=== PATIENT | male | born 1945 | race Caucasian/White ===

== ENCOUNTER 2016-12-28 19:57 | Observation (INO) | payer OTHER, BC ==
[~2016-12-28] VITALS: Ht 182.9 cm; Wt 78.1 kg
[2016-12-28 20:28] LABS: HEMATOCRIT 44.3 % (38.0-50.0); MCH 25.6 PG (29.0-34.0); MCHC 32.1 G/DL (30.0-36.0); MCV 79.8 FL (86-99); MEAN PLAT.VOLUME 9.8 uM^3 (9.0-12.4); PLATELET COUNT 146 K/uL (156-360); RBC DIS.WIDTH-CV 13.6 % (11.8-14.6); RBC DIS.WIDTH-SD 39.5 % (39-53); RED BLOOD COUNT 5.55 M/uL (4.00-5.50); WHITE BLOOD COUNT 7.4 K/uL (4.1-10.2)
[2016-12-28 20:36] LABS: ADD MIUA? YES; BILIRUBIN NEGATIVE; BLOOD NEGATIVE; COLOR AMBER ((YELLOW)); GLUCOSE (STRIP) NEGATIVE; KETONES 5; LEUKOCYTES NEGATIVE; NITRITE NEGATIVE; PROTEIN (STRIP) 100; SPECIFIC GRAVITY 1.039 (1.000-1.030); UROBILINOGEN 0.2 MG/DL (0.2-1.0)
[2016-12-28 20:48] LABS: BACTERIA RARE /HPF; CALCIUM OXALATE CRYSTALS 3+ /HPF; EPITHELIAL CELLS RARE /HPF; MUCUS 3+ /LPF; RED BLOOD CELLS 30-40 /HPF (0-5); UCUL ADDED? NO; UNCLASSIFIED CRYSTALS 4+ /HPF
[2016-12-28 20:50] LABS: CHLORIDE 106 mEq/L (99-109); POTASSIUM 3.9 mEq/L (3.7-5.4); SODIUM 140 mEq/L (136-147)
[2016-12-28 20:52] LABS: GLUCOSE 152 mg/dL (70-99)
[2016-12-28 20:53] LABS: ANION GAP 11 MEQ/L (2-14)
[2016-12-28 20:54] LABS: TOTAL BILIRUBIN 0.7 mg/dL (0.0-1.0)
[2016-12-28 20:56] LABS: ALKALINE PHOSPHATASE 130 IU/L (3-129); GFR ESTIMATE (CALCULATED) 40 mL/min/
[2016-12-28 20:57] LABS: UREA NITROGEN (BUN) 22 mg/dL (9-23)
[2016-12-29] MEDS ORDERED: NITROSTAT0.4 MG SL (00:14)
[2016-12-29] MEDS ORDERED: PRAVASTATIN SOD20 MG PO (00:14)
[2016-12-29] MEDS ORDERED: PROSTATE SR SO1 EACH PO (00:15)
[2016-12-29] MEDS ORDERED: LO-DOSE ASPIRIN81 M2 PO (00:15)
[2016-12-29] MEDS ORDERED: OSTEO BI-FLEX1 EAC2 PO (00:15)
[2016-12-29] MEDS ORDERED: CARVEDILOL12.5 MG PO (00:15)
[2016-12-29] MEDS ORDERED: ASCORBIC ACID500 M3 PO (00:16)
[2016-12-29] MEDS ORDERED: OMEGA-31000 M1 PO (00:16)
[2016-12-29] MEDS ORDERED: PRESERVISION T1 EACH PO (00:16)
[2016-12-29] MEDS ORDERED: PREVACID 24HR15 MG PO (00:16)
[2016-12-29 02:34] VITALS: BP 112/72
[2016-12-29 05:52] VITALS: BP 118/80
[2016-12-29 07:01] LABS: Estimated Average Glucose 126 mg/dL (70-123)
[2016-12-29 08:03] LABS: ANISOCYTOSIS 1+; MICROCYTOSIS 2+; PLAT.SUFFICIENCY DECREASED; POIKILOCYTOSIS 1+
[2016-12-29 12:14] VITALS: BP 123/72
[2016-12-29 15:54] VITALS: BP 130/70
[2016-12-29] MEDS ORDERED: NORCO 5/3251 TABLET PO (17:09)
[2016-12-29] MEDS ORDERED: CIPRO500 MG PO (17:09)
[2016-12-30 00:17] LABS: ABS NEUTROPHIL COUNT 4.7; EOSINOPHIL ABS CT 0.1
== END 2016-12-29 18:08 | disposition home or self-care (01) ==
LOC: EME 19:57 → EDOF 12-29 00:15 → 2EASTP 12-29 00:15 → EDOF 12-29 00:15 → 2EASTP 12-29 01:36
PROC: 0DTJ4ZZ Resection of Appendix, Percutaneous Endoscopic Approach (ICD-10-PCS; principal; 2016-12-29)
DX: K35.80 Unspecified acute appendicitis (principal); I25.10 Atherosclerotic heart disease of native coronary artery without angina pectoris; I25.2 Old myocardial infarction; Z95.5 Presence of coronary angioplasty implant and graft; I10 Essential (primary) hypertension; E78.00 Pure hypercholesterolemia, unspecified; Z88.0 Allergy status to penicillin
CPT/HCPCS: 71020; 74176; 80053; 81003; 83036; 85025; 85027; 87086; 88304; 93005; 99281; 99284; G0378; J0131; J0330; J0744; J1335; J1885; J2405; J2710; J3010; J7030; J7040; J7120; S0020; S0030

== ENCOUNTER 2017-05-04 07:56 | Day surgery (SDC) | payer OTHER ==
[~2017-05-04] VITALS: Ht 180.3 cm; Wt 78.0 kg
[~2017-05-04 07:56] MED LIST: ASCORBIC ACID500 M3 PO; CARVEDILOL12.5 MG PO; CIPRO500 MG PO; DELTASONE20 M1 PO; LO-DOSE ASPIRIN81 M2 PO; NITROSTAT0.4 MG SL; NORCO 5/3251 TABLET PO; OMEGA-31000 M1 PO; OSTEO BI-FLEX1 EAC2 PO; PRAVASTATIN SOD20 MG PO; PRESERVISION T1 EACH PO; PREVACID 24HR15 MG PO; PROSTATE SR SO1 EACH PO; ULTRAM50 MG PO
[2017-05-04 08:28] LABS: MEAN PLAT.VOLUME 9.3 uM^3 (9.0-12.4)
[2017-05-04 08:33] LABS: HEMATOCRIT 42.7 % (38.0-50.0); INTER. NORMALIZED RATIO 1.1; MCH 24.5 PG (29.0-34.0); MCHC 30.4 G/DL (30.0-36.0); MCV 80.4 FL (86-99); NRBC (%) 0.1 /100 WBC (0-0); PLATELET COUNT 201 K/uL (156-360); PROTHROMBIN TIME 12.8 SEC (10.2-12.9); RBC DIS.WIDTH-CV 17.2 % (11.8-14.6); RBC DIS.WIDTH-SD 47.9 % (39-53); RED BLOOD COUNT 5.31 M/uL (4.00-5.50); WHITE BLOOD COUNT 40.8 K/uL (4.1-10.2)
[2017-05-04 08:36] LABS: PTT 22.2 SEC (25-37)
[2017-05-04 08:37] VITALS: BP 129/70
[2017-05-04 09:39] LABS: ABS NEUTROPHIL COUNT 9.6; ANISOCYTOSIS 1+; EOSINOPHIL ABS CT 0; INSTRUMENT ABS NEUTROPHIL CT 10.2 K/uL; METAMYELOCYTES 0.9 %; MICROCYTOSIS 1+; MYELOCYTES 1.7 %; OVALOCYTES 1+; PLAT.SUFFICIENCY ADEQUATE; POIKILOCYTOSIS 1+; SEG.NEUTROPHILS 23.6 % (46.0-76.0); SMUDGE CELLS 8.3
[2017-05-04] MEDS ORDERED: HYDROCODON-ACE1 EAC7 PO (12:34)
[2017-05-04] MEDS ORDERED: COLACE100 MG PO (12:34)
[2017-05-04 13:45] VITALS: BP 149/91
[2017-05-04 14:01] VITALS: BP 127/68
[2017-05-08 12:13] LABS: Flow Number of Markers 23 (()); Flow Spec Viability 79 % (())
== END 2017-05-04 14:07 | disposition home or self-care (01) ==
LOC: SDC 07:56
PROVIDERS: Thoracic Surgery (Cardiothoracic Vascular Surgery)
PROC: 07B74ZX Excision of Thorax Lymphatic, Percutaneous Endoscopic Approach, Diagnostic (ICD-10-PCS; principal; 2017-05-04)
DX: C85.92 Non-Hodgkin lymphoma, unspecified, intrathoracic lymph nodes (principal); R16.1 Splenomegaly, not elsewhere classified; I10 Essential (primary) hypertension; K21.9 Gastro-esophageal reflux disease without esophagitis; Z95.5 Presence of coronary angioplasty implant and graft; Z79.82 Long term (current) use of aspirin; Z88.0 Allergy status to penicillin
CPT/HCPCS: 85025; 85610; 85730; 86850; 86900; 86901; 88185 90; J2250; J2710; J3010

== ENCOUNTER 2018-02-08 09:44 | Inpatient (IN) | payer OTHER ==
[~2018-02-08] VITALS: Ht 180.3 cm; Wt 79.4 kg
[~2018-02-08 09:44] MED LIST changes: -ASCORBIC ACID500 M3 PO; +COLACE100 MG PO; +HYDROCODON-ACE1 EAC7 PO; +VITAMIN C1000 MG PO
[2018-02-08 10:51] LABS: INTER. NORMALIZED RATIO 1.5
[2018-02-08 10:52] LABS: CHLORIDE 101 mEq/L (99-109); POTASSIUM 4.6 mEq/L (3.7-5.4); SODIUM 137 mEq/L (136-147)
[2018-02-08 10:54] LABS: GLUCOSE 278 mg/dL (70-99); PTT 32.1 SEC (25-37)
[2018-02-08 10:58] LABS: CREATININE 1.6 mg/dL (0.6-1.3); GFR ESTIMATE (CALCULATED) 45 mL/min/ (58.99-99999); UREA NITROGEN (BUN) 17 mg/dL (9-23)
[2018-02-08 11:05] LABS: TROP-I INTERPRETATION NEGATIVE; TROPONIN-I 0.02 ng/mL (0.0-0.30)
[2018-02-08] MEDS ORDERED: METOPROLOL SUCC50 MG PO (11:47)
[2018-02-08] MEDS ORDERED: AVELOX400 MG PO (11:49)
[2018-02-08] MEDS ORDERED: ZYLOPRIM300 MG PO (11:50)
[2018-02-08] MEDS ORDERED: FISH OIL OMEGA1 EAC1 PO (11:51)
[2018-02-08 12:10] LABS: BASOPHIL (%) 0.3 % (0-1); EOSINOPHIL (%) 0 % (0-5); HEMATOCRIT 39.7 % (38.0-50.0); HEMOGLOBIN 13.5 G/DL (12.5-16.6); LYMPHOCYTE COUNT 0.4 K/uL (1.0-2.8); MCH 28.8 PG (29.0-34.0); MCV 84.8 FL (86-99); MONOCYTE (%) 9.6 % (3-12); MONOCYTE COUNT 1.4 K/uL (0-0.8); NEUTROPHIL (%) 84.1 % (45-76); NEUTROPHIL COUNT 11.9 K/uL (1.8-6.4); RBC DIS.WIDTH-SD 58.6 % (39-53); RED BLOOD COUNT 4.68 M/uL (4.00-5.50); WHITE BLOOD COUNT 14.2 K/uL (4.1-10.2)
[2018-02-08 12:15] LABS: PLATELET COUNT 161 K/uL (156-360)
[2018-02-08 16:28] LABS: CARBOXY HGB 2.1 % (0-5); COMMENTS - BLOOD GASES A+C+; DEVICE NIV; FI02 70 %; MODE SPON; PCO2 33 mm Hg (35-45); PEEP 7 CM/H20; PO2 181 mm Hg (80-100); PRES. SUPPORT 15 CM/H2O; SITE LR; TOTAL RESP RATE 33 resp/min; pH 7.41 (7.35-7.45)
[2018-02-08 16:29] LABS: BICARBONATE 20.9 mEq/L (22-26)
[2018-02-08 17:07] LABS: TROP-I INTERPRETATION NEGATIVE; TROPONIN-I < 0.01 ng/mL (0.0-0.30)
[2018-02-08] MEDS ORDERED: ALEVE220 MG PO (17:20)
[2018-02-08] MEDS ORDERED: TYLENOL REGULA325 MG PO (17:21)
[2018-02-08 19:54] VITALS: BP 153/81
[2018-02-08 20:00] VITALS: BP 121/71
[2018-02-08 20:13] VITALS: BP 153/81
[2018-02-08 21:00] VITALS: BP 120/74
[2018-02-08 22:00] VITALS: BP 115/72
[2018-02-08 23:00] VITALS: BP 106/74
[2018-02-09] VITALS (18 sets, daily range): BP systolic 91–146; BP diastolic 61–81
[2018-02-09 06:23] LABS: HEMATOCRIT 33.3 % (38.0-50.0); MCH 28.6 PG (29.0-34.0); MCV 86.5 FL (86-99); RBC DIS.WIDTH-CV 19.2 % (11.8-14.6); RBC DIS.WIDTH-SD 59.9 % (39-53); RED BLOOD COUNT 3.85 M/uL (4.00-5.50)
[2018-02-09 06:33] LABS: ALBUMIN 3.4 G/DL (3.2-4.8); ALKALINE PHOSPHATASE 72 IU/L (3-129); ALT (GPT) 22 IU/L (3-49); AST (GOT) 24 IU/L (2-34); CHLORIDE 106 MEQ/L (99-109); CREATININE 1.2 MG/DL (0.6-1.3); GFR ESTIMATE (CALCULATED) > 59 mL/min/ (58.99-99999); GLUCOSE 279 mg/dL (70-99); LACTATE DEHYDROGENASE 272 IU/L (20-246); MAGNESIUM 1.9 mg/dl (1.3-2.7); PHOSPHORUS 2.3 mg/dL (2.5-4.9); POTASSIUM 4.5 MEQ/L (3.7-5.4); SODIUM 141 MEQ/L (136-147); TOTAL PROTEIN 4.7 G/DL (6.4-8.3); UREA NITROGEN (BUN) 20 mg/dL (9-23)
[2018-02-09 07:07] LABS: ABS NEUTROPHIL COUNT 5.6; ANISOCYTOSIS 2+; BAND NEUTROPHILS 13.9 % (0-8.0); BURR CELLS 1+; EOSINOPHIL ABS CT 0; LYMPHOCYTES 2.6 % (15.0-45.0); METAMYELOCYTES 0.9 %; MICROCYTOSIS 2+; MONOCYTES 3.5 % (0-9.0); OVALOCYTES 1+; PLAT.SUFFICIENCY DECREASED; POIKILOCYTOSIS 1+; POLYCHROMASIA 1+; SEG.NEUTROPHILS 79.1 % (46.0-76.0); TEAR DROP CELLS 1+
[2018-02-09 07:49] LABS: PLATELET COUNT 89 K/uL (156-360)
[2018-02-10] VITALS (8 sets, daily range): BP systolic 107–138; BP diastolic 54–87
[2018-02-10 05:19] LABS: BASOPHIL (%) 0.2 % (0-1); EOSINOPHIL (%) 0 % (0-5); HEMATOCRIT 29.7 % (38.0-50.0); HEMOGLOBIN 9.8 G/DL (12.5-16.6); IMMATURE GRANULOCYTE (%) 4.9 % (0.0-0.7); LYMPHOCYTE COUNT 0.2 K/uL (1.0-2.8); MCH 28.2 PG (29.0-34.0); MCV 85.3 FL (86-99); MONOCYTE (%) 5.1 % (3-12); MONOCYTE COUNT 0.3 K/uL (0-0.8); NEUTROPHIL (%) 85.8 % (45-76); NEUTROPHIL COUNT 4.7 K/uL (1.8-6.4); PLATELET COUNT 93 K/uL (156-360); RBC DIS.WIDTH-CV 18.6 % (11.8-14.6); RBC DIS.WIDTH-SD 58.3 % (39-53); RED BLOOD COUNT 3.48 M/uL (4.00-5.50); WHITE BLOOD COUNT 5.5 K/uL (4.1-10.2)
[2018-02-10 06:05] LABS: ALBUMIN 2.8 G/DL (3.2-4.8); ALKALINE PHOSPHATASE 61 IU/L (3-129); ALT (GPT) 19 IU/L (3-49); AST (GOT) 23 IU/L (2-34); CHLORIDE 109 MEQ/L (99-109); GFR ESTIMATE (CALCULATED) > 59 mL/min/ (58.99-99999); GLUCOSE 208 mg/dL (70-99); MAGNESIUM 1.9 mg/dl (1.3-2.7); POTASSIUM 3.9 MEQ/L (3.7-5.4); SODIUM 144 MEQ/L (136-147); TOTAL PROTEIN 4.4 G/DL (6.4-8.3); UREA NITROGEN (BUN) 23 mg/dL (9-23)
[2018-02-10 06:06] LABS: TOTAL BILIRUBIN 0.5 MG/DL (0.0-1.0)
[2018-02-11 03:50] VITALS: BP 106/61
[2018-02-11 05:57] LABS: HEMATOCRIT 31.2 % (38.0-50.0); HEMOGLOBIN 10.3 G/DL (12.5-16.6); MCH 28.1 PG (29.0-34.0); MCV 85.2 FL (86-99); RBC DIS.WIDTH-CV 18.3 % (11.8-14.6); RBC DIS.WIDTH-SD 57.5 % (39-53); RED BLOOD COUNT 3.66 M/uL (4.00-5.50); WHITE BLOOD COUNT 4.3 K/uL (4.1-10.2)
[2018-02-11 06:09] LABS: PLATELET COUNT 121 K/uL (156-360)
[2018-02-11 06:35] LABS: ALKALINE PHOSPHATASE 57 IU/L (3-129); ALT (GPT) 25 IU/L (3-49); AST (GOT) 24 IU/L (2-34); CHLORIDE 107 MEQ/L (99-109); CREATININE 1.1 MG/DL (0.6-1.3); GFR ESTIMATE (CALCULATED) > 59 mL/min/ (58.99-99999); GLUCOSE 199 mg/dL (70-99); MAGNESIUM 1.8 mg/dl (1.3-2.7); POTASSIUM 3.7 MEQ/L (3.7-5.4); SODIUM 144 MEQ/L (136-147); TOTAL BILIRUBIN 0.6 MG/DL (0.0-1.0); TOTAL PROTEIN 4.4 G/DL (6.4-8.3); UREA NITROGEN (BUN) 24 mg/dL (9-23); VANCOMYCIN, TROUGH 13.1 MCG/ML (10-20)
[2018-02-11 06:41] LABS: PHOSPHORUS 3.2 mg/dL (2.5-4.9)
[2018-02-11 06:54] VITALS: BP 111/60
[2018-02-11 07:00] LABS: ANISOCYTOSIS 1+; BAND NEUTROPHILS 7.1 % (0-8.0); EOSINOPHIL ABS CT 0; HYPOCHROMASIA 1+; LYMPHOCYTES 4.5 % (15.0-45.0); MICROCYTOSIS 1+; MONOCYTES 2.7 % (0-9.0); NUCLEATED RBC'S 0.9; PLAT.SUFFICIENCY DECREASED; POIKILOCYTOSIS 1+; SEG.NEUTROPHILS 85.7 % (46.0-76.0)
[2018-02-11 11:12] VITALS: BP 111/68
[2018-02-11 15:18] VITALS: BP 113/65
[2018-02-11 19:54] VITALS: BP 134/76
[2018-02-12 00:56] VITALS: BP 131/73
[2018-02-12 03:56] VITALS: BP 134/85
[2018-02-12 06:16] LABS: ALBUMIN 2.9 G/DL (3.2-4.8); ALKALINE PHOSPHATASE 50 IU/L (3-129); ALT (GPT) 23 IU/L (3-49); AST (GOT) 16 IU/L (2-34); CHLORIDE 106 MEQ/L (99-109); CREATININE 1.1 MG/DL (0.6-1.3); GFR ESTIMATE (CALCULATED) > 59 mL/min/ (58.99-99999); GLUCOSE 202 mg/dL (70-99); MAGNESIUM 1.9 mg/dl (1.3-2.7); PHOSPHORUS 2.6 mg/dL (2.5-4.9); POTASSIUM 3.5 MEQ/L (3.7-5.4); SODIUM 144 MEQ/L (136-147); TOTAL BILIRUBIN 0.6 MG/DL (0.0-1.0); TOTAL PROTEIN 4.3 G/DL (6.4-8.3); UREA NITROGEN (BUN) 25 mg/dL (9-23)
[2018-02-12 08:17] VITALS: BP 133/65
[2018-02-12 12:09] VITALS: BP 123/75
[2018-02-12 16:25] VITALS: BP 136/75
[2018-02-12 20:16] LABS: QGTB-NIL 0.02 IU/mL (()); QUANTIFERON TB GOLD NEGATIVE (Negative)
[2018-02-13 00:13] VITALS: BP 135/80
[2018-02-13 05:53] LABS: HEMATOCRIT 29.7 % (38.0-50.0); MCH 28.3 PG (29.0-34.0); MCHC 33.7 G/DL (30.0-36.0); MCV 84.1 FL (86-99); NRBC (%) 0.5 /100 WBC (0-0); PLATELET COUNT 138 K/uL (156-360); RBC DIS.WIDTH-CV 17.2 % (11.8-14.6); RBC DIS.WIDTH-SD 53.1 % (39-53); RED BLOOD COUNT 3.53 M/uL (4.00-5.50); WHITE BLOOD COUNT 3.8 K/uL (4.1-10.2)
[2018-02-13 06:17] LABS: ALBUMIN 3.1 G/DL (3.2-4.8); ALKALINE PHOSPHATASE 55 IU/L (3-129); ALT (GPT) 21 IU/L (3-49); AST (GOT) 14 IU/L (2-34); CHLORIDE 102 MEQ/L (99-109); CREATININE 1.2 MG/DL (0.6-1.3); GFR ESTIMATE (CALCULATED) > 59 mL/min/ (58.99-99999); GLUCOSE 220 mg/dL (70-99); PHOSPHORUS 2.9 mg/dL (2.5-4.9); POTASSIUM 3.9 MEQ/L (3.7-5.4); SODIUM 141 MEQ/L (136-147); TOTAL BILIRUBIN 0.7 MG/DL (0.0-1.0); TOTAL PROTEIN 4.4 G/DL (6.4-8.3); UREA NITROGEN (BUN) 30 mg/dL (9-23)
[2018-02-13 07:30] VITALS: BP 124/80
[2018-02-13 07:30] LABS: ABS NEUTROPHIL COUNT 3.4; ANISOCYTOSIS 1+; BAND NEUTROPHILS 0.9 % (0-8.0); EOSINOPHIL ABS CT 0; GIANT PLATELETS 2+; HEMATOLOGY COMMENT 1 SN; HYPOCHROMASIA 1+; LYMPHOCYTES 7.1 % (15.0-45.0); MICROCYTOSIS 1+; MONOCYTES 3.5 % (0-9.0); OVALOCYTES 1+; PLAT.SUFFICIENCY DECREASED; POIKILOCYTOSIS 1+; POLYCHROMASIA 1+; SEG.NEUTROPHILS 88.5 % (46.0-76.0); TOX.VACUOLIZATION 1+
[2018-02-13 15:32] VITALS: BP 136/82
[2018-02-13 23:50] VITALS: BP 133/76
[2018-02-14 05:48] LABS: HEMATOCRIT 30.2 % (38.0-50.0); HEMOGLOBIN 10.5 G/DL (12.5-16.6); MCH 29.1 PG (29.0-34.0); MCHC 34.8 G/DL (30.0-36.0); MCV 83.7 FL (86-99); NRBC (%) 0.5 /100 WBC (0-0); PLATELET COUNT 149 K/uL (156-360); RBC DIS.WIDTH-CV 17.3 % (11.8-14.6); RBC DIS.WIDTH-SD 53.1 % (39-53); RED BLOOD COUNT 3.61 M/uL (4.00-5.50); WHITE BLOOD COUNT 4.2 K/uL (4.1-10.2)
[2018-02-14 06:06] LABS: CHLORIDE 99 MEQ/L (99-109); CREATININE 1.1 MG/DL (0.6-1.3); GFR ESTIMATE (CALCULATED) > 59 mL/min/ (58.99-99999); GLUCOSE 252 mg/dL (70-99); POTASSIUM 3.6 MEQ/L (3.7-5.4); SODIUM 139 MEQ/L (136-147); UREA NITROGEN (BUN) 31 mg/dL (9-23)
[2018-02-14 08:05] VITALS: BP 117/67
[2018-02-14 08:49] LABS: ABS NEUTROPHIL COUNT 3.7; ANISOCYTOSIS 3+; ATYPICAL LYMPHOCYTE 4.6 %; BAND NEUTROPHILS 3.7 % (0-8.0); EOSINOPHIL ABS CT 0; EOSINOPHILS 0.9 % (0-5.0); LYMPHOCYTES 0.9 % (15.0-45.0); METAMYELOCYTES 0.9 %; MICROCYTOSIS 3+; MONOCYTES 5.5 % (0-9.0); NUCLEATED RBC'S 0.9; PLAT.SUFFICIENCY ADEQUATE; POIKILOCYTOSIS 1+; SEG.NEUTROPHILS 83.5 % (46.0-76.0)
[2018-02-14] MEDS ORDERED: TESSALON200 MG PO (13:14)
[2018-02-14] MEDS ORDERED: LEVAQUIN750 MG PO (13:16)
[2018-02-14] MEDS ORDERED: MEDROL DOSEPAK4 MG PO (13:17)
== END 2018-02-14 13:58 | disposition home or self-care (01) | DRG 988 ==
LOC: EME 09:44 → EDOF 17:49 → 5SOUTH 17:49 → EDOF 17:49 → ENRESERV 17:51 → 4WEST 19:54 → CANRESERV 02-09 21:15 → ENRESERV 02-09 21:15 → 5SOUTH 02-10 07:20
PROVIDERS: Emergency Medicine; Internal Medicine
DX: R04.2 Hemoptysis (principal); R22.2 Localized swelling, mass and lump, trunk; I25.10 Atherosclerotic heart disease of native coronary artery without angina pectoris; E78.5 Hyperlipidemia, unspecified; I10 Essential (primary) hypertension; J98.11 Atelectasis; D61.818 Other pancytopenia; C83.10 Mantle cell lymphoma, unspecified site; R06.03 Acute respiratory distress; E87.6 Hypokalemia; H35.30 Unspecified macular degeneration; K21.9 Gastro-esophageal reflux disease without esophagitis; E83.39 Other disorders of phosphorus metabolism; Z95.5 Presence of coronary angioplasty implant and graft; I25.2 Old myocardial infarction; Z88.1 Allergy status to other antibiotic agents; Z92.21 Personal history of antineoplastic chemotherapy; Z88.8 Allergy status to other drugs, medicaments and biological substances; E78.00 Pure hypercholesterolemia, unspecified; J98.01 Acute bronchospasm
CPT/HCPCS: 36600; 71045; 71250; 71275; 77012; 80048; 80053; 80202; 81003; 83605; 83615; 83735; 83880; 84100; 84484; 85025; 85610; 85730; 86480 90; 87040; 87070; 87205; 87385 90; 87449 90; 87641; 87798 90; 88305; 88341 TC; 88342 TC; 93005; 94002; 94640; 99281; 99285; J0692; J2920; J2930; J3010; J3370; J7030; J7042